=== PATIENT | female | born 1985 | race Caucasian/White ===

== ENCOUNTER 2018-04-18 17:51 | Emergency (ER) | payer MEDICAID ==
[~2018-04-18] VITALS: Ht 160 cm; Wt 63.4 kg
[2018-04-18 18:13] VITALS: BP 130/97
== END 2018-04-18 20:37 | disposition home or self-care (01) ==
LOC: ER 20:24
DX: R21 Rash and other nonspecific skin eruption (principal); F12.10 Cannabis abuse, uncomplicated
CPT/HCPCS: 99282

== ENCOUNTER 2018-05-05 13:03 | Emergency (ER) | payer MEDICAID ==
[~2018-05-05] VITALS: Ht 160 cm; Wt 63.0 kg
[2018-05-05 13:37] VITALS: BP 119/72
== END 2018-05-05 16:35 | disposition left against medical advice (07) ==
LOC: ER 13:03
DX: Z53.21 Procedure and treatment not carried out due to patient leaving prior to being seen by health care provider (principal)

== ENCOUNTER 2020-04-13 09:35 | Emergency (ER) | payer MEDICAID ==
[~2020-04-13] VITALS: Ht 160 cm; Wt 64.0 kg
[2020-04-13 09:53] LABS: CLARITY URINE CLEAR (CLEAR); COLOR URINE YELLOW (YELLOW); KETONES URINE NEGATIVE (NEGATIVE); LEUKOCYTE ESTERASE URINE 2+ (NEGATIVE); NITRITE URINE NEGATIVE (NEGATIVE); OCCULT BLOOD URINE TRACE (NEGATIVE); PH URINE 5.5 (4.5-8.0); PROTEIN URINE NEGATIVE (NEGATIVE); SPECIFIC GRAVITY URINE 1.015 (1.005-1.030); UROBILINOGEN URINE 0.2 E.U./dL (0.2-1.0)
[2020-04-13] MEDS ORDERED: LIDOCAINE HCL 1% 20ML VIAL (Pyxis) INJ INFIL ONE (10:15)
[2020-04-13] MEDS ORDERED: AZITHROMYCIN 500 MG TABLET PO ONE (10:15)
[2020-04-13] MEDS ORDERED: DOCUSATE SODIUM SUGAR FREE 100MG/10ML UDC NG ONE (10:15)
[2020-04-13] MEDS ORDERED: ACETAMINOPHEN 325MG TABLET PO ONE (10:15)
[2020-04-13] MEDS ORDERED: CEFTRIAXONE SODIUM 250 MG/VIAL IM ONE (10:15)
[2020-04-13 12:10] VITALS: BP 131/74
== END 2020-04-13 12:11 | disposition home or self-care (01) ==
LOC: ER 09:50
DX: N30.00 Acute cystitis without hematuria (principal); Z20.2 Contact with and (suspected) exposure to infections with a predominantly sexual mode of transmission; H61.22 Impacted cerumen, left ear; Z70.8 Other sex counseling
CPT/HCPCS: 81003; 81025; 87086; 96372; 99283; J0696; J3490

== ENCOUNTER 2020-11-27 19:43 | Emergency (ER) | payer MEDICAID ==
[~2020-11-27] VITALS: Ht 160 cm; Wt 61.0 kg
[2020-11-27 20:31] LABS: CLARITY URINE CLEAR (CLEAR); COLOR URINE YELLOW (YELLOW); KETONES URINE NEGATIVE (NEGATIVE); LEUKOCYTE ESTERASE URINE TRACE (NEGATIVE); NITRITE URINE NEGATIVE (NEGATIVE); OCCULT BLOOD URINE 1+ (NEGATIVE); PH URINE 6.5 (4.5-8.0); PROTEIN URINE NEGATIVE (NEGATIVE); SPECIFIC GRAVITY URINE 1.011 (1.005-1.030); UROBILINOGEN URINE 0.2 E.U./dL (0.2-1.0)
[2020-11-27] MEDS ORDERED: AZITHROMYCIN 500 MG TABLET PO NR (22:00)
[2020-11-27] MEDS ORDERED: CEFTRIAXONE SODIUM 500 MG/VIAL IM ONE (22:00)
[2020-11-27] MEDS ORDERED: LIDOCAINE HCL 1% 20ML VIAL (Pyxis) INJ INFIL ONE (22:00)
[2020-11-27] MEDS ORDERED: CEPH500C2 MT (22:34)
[2020-11-27 22:38] VITALS: BP 122/82
[2020-11-27 23:19] LABS: *AMPHETAMINES SCREEN URINE PRESUMTIVE POSITIVE (NEGATIVE); *BARBITURATES SCREEN URINE NEGATIVE (NEGATIVE); *BENZODIAZEPINES SCREEN URINE NEGATIVE (NEGATIVE); *COCAINE SCREEN URINE NEGATIVE (NEGATIVE)
[2020-11-27 23:20] LABS: METHADONE URINE SCREEN NEGATIVE (NEGATIVE); OPIATES URINE SCREEN NEGATIVE (NEGATIVE); PHENCYCLIDINE URINE SCREEN NEGATIVE (NEGATIVE)
[2020-11-27 23:23] LABS: CANNABINOID URINE SCREEN PRESUMTIVE POSITIVE (NEGATIVE)
== END 2020-11-27 22:53 | disposition home or self-care (01) ==
LOC: ER 19:43
DX: N30.00 Acute cystitis without hematuria (principal); F12.10 Cannabis abuse, uncomplicated; Z20.2 Contact with and (suspected) exposure to infections with a predominantly sexual mode of transmission; Z79.899 Other long term (current) drug therapy
CPT/HCPCS: 80305; 81003; 81025; 96372; 99283; J0696

== ENCOUNTER 2021-08-10 18:09 | Emergency (ER) | payer MEDICAID ==
[~2021-08-10] VITALS: Ht 152.4 cm; Wt 60.0 kg
[~2021-08-10 18:09] MED LIST: CEPH500C2 MT; DOXY100C5 MT; PERM60CR4 TP; SULF1TAB48 MT
[2021-08-10] MEDS ORDERED: HYDROCODONE/ACETAMINOPHEN 5/325MG TABLET PO ONE (20:30)
[2021-08-10 20:59] VITALS: BP 130/87
[2021-08-10 21:47] LABS: CLARITY URINE CLOUDY (CLEAR); COLOR URINE YELLOW (YELLOW); KETONES URINE TRACE (NEGATIVE); LEUKOCYTE ESTERASE URINE 1+ (NEGATIVE); NITRITE URINE NEGATIVE (NEGATIVE); OCCULT BLOOD URINE 2+ (NEGATIVE); PH URINE 5.5 (4.5-8.0); PROTEIN URINE 1+ (NEGATIVE); SPECIFIC GRAVITY URINE 1.034 (1.005-1.030)
[2021-08-10] MEDS ORDERED: CEPH500C2 MT (22:00)
[2021-08-10] MEDS ORDERED: SULF1TAB48 MT (22:02)
[2021-08-15 09:11] LABS: NEISSERIA GONORRHOEAE NAA Positive (Negative)
== END 2021-08-10 22:27 | disposition home or self-care (01) ==
LOC: ER 18:09
DX: N39.0 Urinary tract infection, site not specified (principal); F12.10 Cannabis abuse, uncomplicated; Z79.899 Other long term (current) drug therapy
CPT/HCPCS: 10060; 81003; 87210; 87491; 87591; 99283

== ENCOUNTER 2021-08-24 23:49 | Emergency (ER) | payer MEDICAID ==
[~2021-08-24] VITALS: Ht 160 cm; Wt 64.0 kg
[2021-08-25 00:05] VITALS: BP 121/73
[2021-08-25] MEDS ORDERED: DOXY100T2 MT (00:23)
[2021-08-25] MEDS ORDERED: CEFTRIAXONE SODIUM 500 MG/VIAL IM ONE (00:30)
[2021-08-25] MEDS ORDERED: DOXYCYCLINE HYCLATE 100MG CAPSULE PO ONE (00:30)
== END 2021-08-25 02:25 | disposition home or self-care (01) ==
LOC: ER 23:49
DX: A64 Unspecified sexually transmitted disease (principal); F12.10 Cannabis abuse, uncomplicated
CPT/HCPCS: 96372; 99283; J0696

== ENCOUNTER 2021-12-13 00:06 | Emergency (ER) | payer MEDICAID ==
[~2021-12-13] VITALS: Ht 160 cm; Wt 61.9 kg
[~2021-12-13 00:06] MED LIST changes: +DOXY100T2 MT
[2021-12-13 00:18] VITALS: BP 137/79
== END 2021-12-13 02:34 | disposition left against medical advice (07) ==
LOC: ER 00:06
DX: Z53.21 Procedure and treatment not carried out due to patient leaving prior to being seen by health care provider (principal)

== ENCOUNTER 2022-01-19 13:11 | Emergency (ER) | payer MEDICAID ==
[~2022-01-19] VITALS: Ht 160 cm; Wt 62.0 kg
[2022-01-19 13:40] VITALS: BP 125/82
[2022-01-19] MEDS ORDERED: DOXY100C5 MT (17:09)
[2022-01-19] MEDS ORDERED: HYDR28OI2 TP (17:11)
[2022-01-19] MEDS ORDERED: DOXYCYCLINE HYCLATE 100MG CAPSULE PO ONE (17:15)
[2022-01-19] MEDS ORDERED: METRONIDAZOLE 500MG TABLET PO ONE (17:15)
[2022-01-19] MEDS ORDERED: CEFTRIAXONE SODIUM 1 G/VIAL IM ONE (17:15)
[2022-01-19 17:31] LABS: CLARITY URINE CLEAR (CLEAR); COLOR URINE YELLOW (YELLOW); KETONES URINE NEGATIVE (NEGATIVE); LEUKOCYTE ESTERASE URINE 2+ (NEGATIVE); NITRITE URINE NEGATIVE (NEGATIVE); OCCULT BLOOD URINE TRACE (NEGATIVE); PH URINE 5.5 (4.5-8.0); PROTEIN URINE NEGATIVE (NEGATIVE); UROBILINOGEN URINE 0.2 E.U./dL (0.2-1.0)
== END 2022-01-19 16:40 | disposition home or self-care (01) ==
LOC: ER 13:11
DX: Z20.2 Contact with and (suspected) exposure to infections with a predominantly sexual mode of transmission (principal)
CPT/HCPCS: 81003; 96372; 99283; J0696

== ENCOUNTER 2022-10-18 19:07 | Emergency (ER) | payer MEDICAID ==
[~2022-10-18] VITALS: Ht 160 cm; Wt 61.0 kg
[~2022-10-18 19:07] MED LIST changes: +HYDR28OI2 TP
[2022-10-18 19:26] VITALS: BP 121/90
[2022-10-18 20:48] LABS: CLARITY URINE CLEAR (CLEAR); COLOR URINE YELLOW (YELLOW); KETONES URINE NEGATIVE (NEGATIVE); LEUKOCYTE ESTERASE URINE NEGATIVE (NEGATIVE); NITRITE URINE NEGATIVE (NEGATIVE); OCCULT BLOOD URINE 2+ (NEGATIVE); PH URINE 5.5 (4.5-8.0); PROTEIN URINE NEGATIVE (NEGATIVE); SPECIFIC GRAVITY URINE 1.003 (1.005-1.030); UROBILINOGEN URINE 0.2 E.U./dL (0.2-1.0)
[2022-10-18] MEDS ORDERED: FLUT9.9S BOTHNSTRLS (22:27)
[2022-10-18] MEDS ORDERED: DOXY100T2 MT (22:27)
[2022-10-18] MEDS ORDERED: METRONIDAZOLE 500MG TABLET PO ONE (22:30)
[2022-10-18] MEDS ORDERED: CEFTRIAXONE SODIUM 500 MG/VIAL IM ONE (22:30)
== END 2022-10-18 22:52 | disposition home or self-care (01) ==
LOC: ER 19:07
DX: Z76.0 Encounter for issue of repeat prescription (principal); N89.8 Other specified noninflammatory disorders of vagina
CPT/HCPCS: 81003; 81025; 96372; 99283; J0696

== ENCOUNTER 2023-01-14 00:33 | Emergency (ER) | payer MEDICAID ==
[~2023-01-14] VITALS: Ht 160 cm; Wt 61.3 kg
[~2023-01-14 00:33] MED LIST changes: +FLUT9.9S BOTHNSTRLS
[2023-01-14] MEDS ORDERED: IBUPROFEN 600MG TABLET PO ONE (04:15)
[2023-01-14] MEDS ORDERED: AMOXICILLIN/POTASSIUM CLAVULANATE 875/125MG TAB PO ONE (04:15)
[2023-01-14] MEDS ORDERED: SULFAMETHOXAZOLE/TRIMETHOPRIM 800/160MG TABLET PO ONE (04:15)
[2023-01-14] MEDS ORDERED: AMOX1TAB16 MT (04:31)
[2023-01-14] MEDS ORDERED: SULF1TAB48 MT (04:31)
[2023-01-14] MEDS ORDERED: IBUP-2029 MT (04:31)
[2023-01-14] MEDS ORDERED: SULFAMETHOXAZOLE/TRIMETHOPRIM 800/160MG TABLET PO NR (05:00)
[2023-01-14] MEDS ORDERED: AMOXICILLIN/POTASSIUM CLAVULANATE 875/125MG TAB PO NR (05:00)
[2023-01-14] MEDS ORDERED: IBUPROFEN 600MG TABLET PO NR (05:00)
[2023-01-14 05:47] VITALS: BP 121/73
== END 2023-01-14 05:51 | disposition home or self-care (01) ==
LOC: ER 00:33
DX: L03.213 Periorbital cellulitis (principal); A64 Unspecified sexually transmitted disease; F12.10 Cannabis abuse, uncomplicated; Z79.899 Other long term (current) drug therapy
CPT/HCPCS: 81025; 99284

== ENCOUNTER 2023-03-05 01:30 | Emergency (ER) | payer SELFPAY ==
[~2023-03-05] VITALS: Ht 160 cm; Wt 60.0 kg
[~2023-03-05 01:30] MED LIST changes: +AMOX1TAB16 MT; +IBUP-2029 MT
[2023-03-05 01:42] VITALS: BP 117/86; O2SAT 100
[2023-03-05 03:11] LABS: CLARITY URINE CLEAR (CLEAR); COLOR URINE YELLOW (YELLOW); KETONES URINE TRACE (NEGATIVE); LEUKOCYTE ESTERASE URINE 1+ (NEGATIVE); NITRITE URINE NEGATIVE (NEGATIVE); OCCULT BLOOD URINE NEGATIVE (NEGATIVE); PH URINE 5.5 (4.5-8.0); PROTEIN URINE NEGATIVE (NEGATIVE); SPECIFIC GRAVITY URINE 1.029 (1.005-1.030)
[2023-03-05] MEDS ORDERED: LIDOCAINE HCL 1% 20ML VIAL (Pyxis) INJ INFIL ONE (03:15)
[2023-03-05] MEDS ORDERED: DOXY150T5 MT (03:15)
[2023-03-05] MEDS ORDERED: CEFTRIAXONE SODIUM 1 G/VIAL IM ONE (03:15)
[2023-03-05] MEDS ORDERED: METR-167 MT (03:15)
[2023-03-05] MEDS ORDERED: NITR-87 MT (03:15)
[2023-03-05 03:55] VITALS: PULSE 92; RESP 16; TEMP 98.8
== END 2023-03-05 03:45 | disposition home or self-care (01) ==
LOC: ER 01:30
DX: N39.0 Urinary tract infection, site not specified (principal); Z79.899 Other long term (current) drug therapy
CPT/HCPCS: 81003; 81025; 87086; 96372; 99283; J0696; Z7610 ×2

== ENCOUNTER 2023-05-28 05:02 | Emergency (ER) | payer MEDICAID ==
[~2023-05-28] VITALS: Ht 160 cm; Wt 62.5 kg
[~2023-05-28 05:02] MED LIST changes: +DOXY150T5 MT; +METR-167 MT; +NITR-87 MT
[2023-05-28 05:05] VITALS: BP 133/77; RESP 17; TEMP 97.6; O2SAT 100
[2023-05-28 05:08] VITALS: PULSE 100
[2023-05-28] MEDS ORDERED: CEFTRIAXONE SODIUM 500 MG/VIAL IM ONE (06:00)
[2023-05-28] MEDS ORDERED: CLOT15CR27 TP (06:09)
[2023-05-28] MEDS ORDERED: TETR-65 MT (06:09)
[2023-05-28 06:31] LABS: CLARITY URINE CLEAR (CLEAR); COLOR URINE YELLOW (YELLOW); GLUCOSE URINE NEGATIVE (NEGATIVE); KETONES URINE NEGATIVE (NEGATIVE); LEUKOCYTE ESTERASE URINE NEGATIVE (NEGATIVE); NITRITE URINE NEGATIVE (NEGATIVE); OCCULT BLOOD URINE TRACE (NEGATIVE); PH URINE 5.5 (4.5-8.0); PROTEIN URINE NEGATIVE (NEGATIVE); SPECIFIC GRAVITY URINE 1.013 (1.005-1.030); UROBILINOGEN URINE 0.2 E.U./dL (0.2-1.0)
[2023-05-28 06:34] LABS: BACTERIA URINE NONE SEEN; WBC URINE 0-2 /hpf (0-2); YEAST URINE NONE SEEN
[2023-05-28 08:02] LABS: SQUAMOUS EPITHELIAL CELL URINE FEW /lpf (RARE/1+)
[2023-05-28 08:03] LABS: RBC URINE 0-2 /hpf (0-2)
== END 2023-05-28 06:53 | disposition home or self-care (01) ==
LOC: ER 05:02
DX: A64 Unspecified sexually transmitted disease (principal); F12.10 Cannabis abuse, uncomplicated; Z88.6 Allergy status to analgesic agent; Z88.5 Allergy status to narcotic agent; Z79.899 Other long term (current) drug therapy; Z98.890 Other specified postprocedural states
CPT/HCPCS: 99283; 81003; 81025; 96372; J0696

== ENCOUNTER 2024-04-12 11:04 | Emergency (ER) | payer MEDICAID ==
[~2024-04-12] VITALS: Ht 162.6 cm; Wt 66.0 kg
[~2024-04-12 11:04] MED LIST changes: +CLOT15CR27 TP; -DOXY150T5 MT; +DOXY150T8 MT; +TETR-65 MT
[2024-04-12 11:11] VITALS: BP 120/73; PULSE 96; RESP 18; TEMP 98.5; O2SAT 100
[2024-04-12] MEDS: CEFTRIAXONE SODIUM 500MG VIAL IM ONE (12:36)
[2024-04-12 12:47] LABS: CLARITY URINE CLOUDY (CLEAR); COLOR URINE YELLOW (YELLOW); GLUCOSE URINE TRACE (NEGATIVE); KETONES URINE NEGATIVE (NEGATIVE); LEUKOCYTE ESTERASE URINE NEGATIVE (NEGATIVE); NITRITE URINE POSITIVE (NEGATIVE); OCCULT BLOOD URINE 2+ (NEGATIVE); PH URINE 5.5 (4.5-8.0); PROTEIN URINE TRACE (NEGATIVE); SPECIFIC GRAVITY URINE 1.034 (1.005-1.030); UROBILINOGEN URINE 0.2 E.U./dL (0.2-1.0)
[2024-04-12 13:00] LABS: *AMPHETAMINES SCREEN URINE PRESUMPTIVE POSITIVE (NEGATIVE); *BARBITURATES SCREEN URINE NEGATIVE (NEGATIVE); *BENZODIAZEPINES SCREEN URINE NEGATIVE (NEGATIVE); *COCAINE SCREEN URINE NEGATIVE (NEGATIVE)
[2024-04-12 13:01] LABS: CANNABINOID URINE SCREEN PRESUMPTIVE POSITIVE (NEGATIVE); ECSTASY MDMA SCREEN URINE CONF.TEST INDICATED (NEGATIVE); METHADONE URINE SCREEN NEGATIVE (NEGATIVE); OPIATES URINE SCREEN NEGATIVE (NEGATIVE); PHENCYCLIDINE URINE SCREEN NEGATIVE (NEGATIVE)
[2024-04-12 13:11] LABS: BACTERIA URINE 2+; RBC URINE 0-2 /hpf (0-2); SQUAMOUS EPITHELIAL CELL URINE 1+ /lpf (RARE/1+); YEAST URINE NONE SEEN
[2024-04-12] MEDS ORDERED: PYR200 MT (14:30)
[2024-04-12] MEDS ORDERED: DOXY100T2 MT (14:30)
[2024-04-15 04:08] LABS: CHLAMYDIA TRACHOMATIS NAA Negative (Negative); NEISSERIA GONORRHOEAE NAA Negative (Negative)
== END 2024-04-12 15:04 | disposition home or self-care (01) ==
LOC: ER 11:11
DX: N34.2 Other urethritis (principal); F15.90 Other stimulant use, unspecified, uncomplicated; F12.90 Cannabis use, unspecified, uncomplicated; Z79.899 Other long term (current) drug therapy; Z88.6 Allergy status to analgesic agent
CPT/HCPCS: 87491; 87591; 80305; 81003; 96372; 99283; J0696; Z7610

== ENCOUNTER 2024-04-21 19:32 | Emergency (ER) | payer MEDICAID ==
[~2024-04-21] VITALS: Ht 160 cm; Wt 62.5 kg
[~2024-04-21 19:32] MED LIST changes: +PYR200 MT
[2024-04-21 20:06] VITALS: TEMP 97.7; O2SAT 100
[2024-04-21 20:29] LABS: CLARITY URINE CLEAR (CLEAR); COLOR URINE DARK YELLOW (YELLOW); GLUCOSE URINE NEGATIVE (NEGATIVE); KETONES URINE NEGATIVE (NEGATIVE); LEUKOCYTE ESTERASE URINE NEGATIVE (NEGATIVE); NITRITE URINE POSITIVE (NEGATIVE); OCCULT BLOOD URINE 2+ (NEGATIVE); PH URINE 5.5 (4.5-8.0); PROTEIN URINE NEGATIVE (NEGATIVE); SPECIFIC GRAVITY URINE 1.029 (1.005-1.030)
[2024-04-21] MEDS ORDERED: CEFTRIAXONE SODIUM 500MG VIAL IM ONE (20:45)
[2024-04-21 20:57] LABS: BACTERIA URINE TRACE; RBC URINE 0-2 /hpf (0-2); SQUAMOUS EPITHELIAL CELL URINE 1+ /lpf (RARE/1+); WBC URINE 0-2 /hpf (0-2)
[2024-04-21] MEDS ORDERED: DOXY100T2 MT (21:45)
[2024-04-21] MEDS ORDERED: CEPH500T MT (21:45)
[2024-04-21] MEDS: CEFTRIAXONE SODIUM 500MG VIAL IM NR (22:44)
[2024-04-21 23:00] VITALS: BP 128/78; PULSE 78; RESP 18; O2SAT 99
[2024-04-23 19:06] LABS: CHLAMYDIA TRACHOMATIS NAA Negative (Negative); NEISSERIA GONORRHOEAE NAA Negative (Negative)
== END 2024-04-21 23:00 | disposition home or self-care (01) ==
LOC: ER 19:32
DX: Z20.2 Contact with and (suspected) exposure to infections with a predominantly sexual mode of transmission (principal); F12.10 Cannabis abuse, uncomplicated; N39.0 Urinary tract infection, site not specified; Z88.6 Allergy status to analgesic agent; Z88.5 Allergy status to narcotic agent; Z79.899 Other long term (current) drug therapy
CPT/HCPCS: 99283; 87491; 87591; 81003; 81025; 96372; J0696

== ENCOUNTER 2024-08-03 22:24 | Emergency (ER) | payer MEDICAID ==
[~2024-08-03] VITALS: Ht 160 cm; Wt 62.0 kg
[~2024-08-03 22:24] MED LIST changes: +CEPH500T MT
[2024-08-03 22:42] VITALS: O2SAT 98
[2024-08-03] MEDS: CEFTRIAXONE SODIUM 500MG VIAL IM ONE (22:45)
[2024-08-04] MEDS ORDERED: DOXY100C5 MT (01:19)
[2024-08-04 01:25] LABS: CLARITY URINE CLEAR (CLEAR); COLOR URINE YELLOW (YELLOW); GLUCOSE URINE NEGATIVE (NEGATIVE); KETONES URINE TRACE (NEGATIVE); LEUKOCYTE ESTERASE URINE NEGATIVE (NEGATIVE); NITRITE URINE NEGATIVE (NEGATIVE); OCCULT BLOOD URINE NEGATIVE (NEGATIVE); PH URINE 5.5 (4.5-8.0); PROTEIN URINE NEGATIVE (NEGATIVE); SPECIFIC GRAVITY URINE 1.036 (1.005-1.030)
[2024-08-04] MEDS: CEFTRIAXONE SODIUM 500MG VIAL IM NR (01:30)
[2024-08-04 01:35] VITALS: BP 132/78; PULSE 87; RESP 16; TEMP 36.78072; O2SAT 98
== END 2024-08-04 01:41 | disposition home or self-care (01) ==
LOC: ER 22:24
DX: A64 Unspecified sexually transmitted disease (principal); F12.10 Cannabis abuse, uncomplicated; Z11.3 Encounter for screening for infections with a predominantly sexual mode of transmission; Z20.2 Contact with and (suspected) exposure to infections with a predominantly sexual mode of transmission; Z88.5 Allergy status to narcotic agent; Z79.899 Other long term (current) drug therapy
CPT/HCPCS: 99283; 96372; 87491; 87591; 81003; J0696

== ENCOUNTER 2024-09-17 13:00 | Emergency (ER) | payer MEDICAID ==
[~2024-09-17] VITALS: Ht 160 cm; Wt 62.0 kg
[2024-09-17 13:52] VITALS: O2SAT 100
[2024-09-17] MEDS ORDERED: DOXY100C5 MT (16:22)
[2024-09-17] MEDS: CEFTRIAXONE SODIUM 500MG VIAL IM ONE (16:34)
[2024-09-17 16:41] VITALS: BP 128/67; PULSE 99; RESP 16; TEMP 36.7; O2SAT 100
[2024-09-17 18:26] LABS: CLARITY URINE CLEAR (CLEAR); COLOR URINE YELLOW (YELLOW); GLUCOSE URINE NEGATIVE (NEGATIVE); KETONES URINE NEGATIVE (NEGATIVE); LEUKOCYTE ESTERASE URINE NEGATIVE (NEGATIVE); NITRITE URINE NEGATIVE (NEGATIVE); OCCULT BLOOD URINE 1+ (NEGATIVE); PROTEIN URINE NEGATIVE (NEGATIVE); SPECIFIC GRAVITY URINE 1.007 (1.005-1.030); UROBILINOGEN URINE 0.2 E.U./dL (0.2-1.0)
[2024-09-17 19:02] LABS: BACTERIA URINE NONE SEEN; RBC URINE NONE SEEN /hpf (0-2); SQUAMOUS EPITHELIAL CELL URINE FEW /lpf (RARE/1+); WBC URINE NONE SEEN /hpf (0-2)
[2024-09-20 06:11] LABS: CHLAMYDIA TRACHOMATIS NAA Negative (Negative); NEISSERIA GONORRHOEAE NAA Negative (Negative)
== END 2024-09-17 16:42 | disposition home or self-care (01) ==
LOC: ER 13:08
DX: Z20.2 Contact with and (suspected) exposure to infections with a predominantly sexual mode of transmission (principal); F12.90 Cannabis use, unspecified, uncomplicated; Z79.899 Other long term (current) drug therapy; Z88.5 Allergy status to narcotic agent
CPT/HCPCS: 99283; 87491; 87591; 81003; 81025; 96372; J0696